=== PATIENT | male | born 1985 | race Caucasian/White ===

== ENCOUNTER 2020-09-14 15:32 | Outpatient (CLI) | payer MEDICARE, OTHER ==
--- NOTE | 2020-09-14 16:24 | Ultrasound Report ---
PROCEDURE: Ext Limited Non Vascular INDICATIONS: LT FOREARM SUBCUTANEOUS NODULE TECHNIQUE: Real-time scanning was performed of the left forearm, with image documentation. COMPARISON: None. FINDINGS: Focused ultrasound examination of left forearm at patient's reported area of palpable lump shows a we ll encapsulated oval solid structure with similar echogenicity to surrounding subcutaneous fat and me asures 2.3 x 0.4 x 2 cm in size. No internal vascularity is seen. IMPRESSION: Finding likely represent a small 2.3 x 0.4 x 2 cm lipoma in left forearm subcutaneous so ft tissue. Reviewed by: Anmol Vera MD on 09/14/2020 4:23 PM PST Approved by: Anmol Vera MD on 09/14/2020 4:23 PM PST Station ID: [id number]
--- NOTE | 2020-09-14 16:58 | XRAY Report ---
PROCEDURE: Lumbar Spine 2 View INDICATIONS: BACK PAIN, LUMBAR, WITH RADICULOPATHY TECHNIQUE: 2 views of the lumbar spine were acquired. COMPARISON: None. FINDINGS: Bones: 5 [id number] vertebrae are present. There is normal bony alignment. No vertebral marvin dy compression fractures. No suspicious bony lesions. Soft tissues: Overlying bowel gas pattern is normal. No suspicious soft tissue calcifications. IMPRESSION: No acute fracture. No osseous lesion. If symptoms and/or clinical suspicion for patholog y continue, further assessment with repeat plain films, or advanced imaging (e.g., CT, MRI, or bone s can) is recommended for further assessment. Reviewed by: Linden Pagan MD on 09/14/2020 4:56 PM PST Approved by: Linden Pagan MD on 09/14/2020 4:56 PM [facility] Station ID: [id number]
== END 2020-09-14 15:33 | disposition home or self-care (01) ==
LOC: DI 15:32
PROVIDERS: ATTEND Nurse Practitioner
DX: M54.16 Radiculopathy, lumbar region (principal); R22.32 Localized swelling, mass and lump, left upper limb

== ENCOUNTER 2023-11-01 15:30 | Outpatient (CLI) | payer MEDICARE, OTHER ==
[2023-11-01 18:14] LABS: BASOPHILS % (AUTO) 0.2 %; EOSINOPHILS % (AUTO) 0.2 %; HCT - HEMATOCRIT 43.6 % (42.0-52.0); HGB - HEMOGLOBIN 15.2 g/dL (14.0-18.0); MEAN CORPUSCULAR HEMOGLOBIN 32.3 pg (27.0-31.0); MEAN CORPUSCULAR HGB CONC 34.9 g/dL (32.0-36.0); MEAN CORPUSCULAR VOLUME 92.8 fL (80.0-94.0); MEAN PLATELET VOLUME 9.6 fL (7.4-11.4); MONOCYTES # (AUTO) 0.5 10^3/uL (0.0-1.0); MONOCYTES % (AUTO) 12.3 %; NEUTROPHILS # (AUTO) 2.8 10^3/uL (1.5-6.6); NEUTROPHILS % (AUTO) 64.1 %; PLT - PLATELET COUNT 224 10^3/uL (130-450); RED CELL DISTRIBUTION WIDTH 11.9 % (12.0-15.0); WHITE BLOOD COUNT 4.4 x10^3/uL (4.8-10.8)
[2023-11-01 18:55] LABS: THYROID STIMULATING HORMONE 1.09 uIU/mL (0.34-5.60)
[2023-11-01 18:57] LABS: ALBUMIN 4.4 g/dL (3.2-5.5); ALBUMIN/GLOBULIN RATIO 1.5 (1.0-2.2); BILIRUBIN,TOTAL 1.8 mg/dL (0.2-1.0); CALCIUM 9.6 mg/dL (8.5-10.3); POTASSIUM 3.7 mmol/L (3.5-4.5); TOTAL PROTEIN 7.3 g/dL (6.4-8.9)
== END 2023-11-01 15:45 | disposition home or self-care (01) ==
LOC: LAB.N 15:30
PROVIDERS: ATTEND Family Medicine
DX: R53.81 Other malaise (principal); R53.83 Other fatigue; E86.0 Dehydration
CPT/HCPCS: 36415; 80053; 84443; 85025; 87086